=== PATIENT | male | born 2000 | race Caucasian/White ===

== ENCOUNTER 2024-02-06 11:02 | Emergency (ER) | payer OTHER, SELFPAY ==
[2024-02-06 11:07] VITALS: BP 148/88; PULSE 94; RESP 16; TEMP 36.6; O2SAT 100
--- NOTE | 2024-02-06 12:48 | ED.EAR ---
HPI - Ear Problem General Chief complaint: Ear Stated complaint: ear pain Time Seen by Provider: 02/06/24 12:06 History of Present Illness HPI Narrative: Patient is a 24-year-old male who presents to the emergency department this afternoon complaining of right ear pain. Patient states that the pain started approximately 2 days ago and has been progressively getting worse. Patient states that he feels as though there is fluid behind both of his ears although no pain with the left. Denies any fevers or chills at home, any upper respiratory infection and denies any additional symptoms or concerns at this time. Denies any recent swimming. Related Data Allergies Allergy/AdvReac Type Severity Reaction Status Date / Time No Known Allergies Allergy Mild Verified 02/06/24 11:03 Review of Systems Review of Systems: All systems are reviewed and are negative unless stated otherwise in the HPI. Exam Narrative: General: Alert, awake, afebrile, in no acute distress. HEENT: PERRL, no rhinorrhea, no post nasal drip, oropharynx clear, pain with pinna manipulation of the right ear, your with the via along the your kidney and part of the TM. Part of the view is obstructed due to cerumen impaction. Cardiovascular: Regular rate and rhythm, no murmurs, rubs or gallops, no peripheral edema. Respiratory: Clear to auscultation bilaterally, no tachypnea, no wheezing, no rhonchi, no rubs, no respiratory distress. Abdomen: Soft, nontender, nondistended, no rebound, no guarding, no peritoneal signs. Musculoskeletal: No joint swelling or deformity, normal muscle tone. Skin: No rashes or petechia, no signs of infection. Neurological: Alert and oriented to person, place, and time. Follows all commands. No focal deficits, speech is clear and fluent. Course Vital Signs Vital signs: Vital Signs Temperature 97.9 F 02/06/24 11:07 Pulse Rate 94 02/06/24 11:07 Respiratory Rate 16 02/06/24 11:07 Blood Pressure 148/88 H 02/06/24 11:07 Pulse Oximetry 100 02/06/24 11:07 Oxygen Delivery Room Air 02/06/24 11:07 Temperature 97.9 F 02/06/24 11:07 Pulse Rate 94 02/06/24 11:07 Respiratory Rate 16 02/06/24 11:07 Blood Pressure 148/88 H 02/06/24 11:07 Pulse Oximetry 100 02/06/24 11:07 Oxygen Delivery Room Air 02/06/24 11:07 Medical Decision Making MDM Narrative Medical decision making narrative: The patient was evaluated by myself in the emergency department. History is obtained from patient who is an independent historian and physical exam was performed. External medical records were reviewed at this time. Patient was administered 1000 mg of oral amoxicillin at this and was informed that he will be placed on an oral antibiotic at home and provided with a script. Differential diagnosis considerations include otitis externa versus otitis media. Comorbidities impacting this visit include none. I have evaluated and discussed social determinants of health with the patient that could potentially impact subsequent diagnosis and treatment plans. On repeat assessment of the patient, reevaluation revealed that the patient is doing well and is in no acute distress. Patient symptoms have improved since he arrived to our emergency department. Repeat vital signs were all reviewed and noted to be stable. Differential diagnosis and treatment plan were discussed with the patient at bedside. Patient agrees with discussion and after shared medical decision making agrees with discharge. All questions were answered to the patient's satisfaction. Patient will follow up with his PCP in 3-5 days. Patient was provided with strict return precautions and instructed to return to the emergency department if any new or worsening symptoms develop. He was provided with a script for amoxicillin to use as instructed. The patient was discharged in stable condition. Vital Signs Vital Signs: Vital Signs Temperature 97.9 F 02/06/24
[2024-02-06] MEDS: AMOXICILLIN 500 MG CAPSULE 1000 MG PO (13:06)
[2024-02-06 13:09] VITALS: BP 126/77; PULSE 77; RESP 18; TEMP 37; O2SAT 100
== END 2024-02-06 13:06 | disposition home or self-care (01) ==
PROVIDERS: Emergency Provider Emergency Medicine
DX: H66.91 Otitis media, unspecified, right ear (principal)
CPT/HCPCS: 99283; A9270

== ENCOUNTER 2024-09-21 19:29 | Emergency (ER) | payer BC, SELFPAY ==
[2024-09-21 19:30] VITALS: BP 150/82; PULSE 138; RESP 15; TEMP 37.2; O2SAT 98
--- OUTSIDE RECORDS SUMMARY | 2024-09-21 19:33 | XMS_ITS | Patient Health Summary ---
Author Organization [facility] [employer] Address [address] [place] [address] Care Team Providers Care Seasonal Sales Associate Name Role Phone Wilmer Russ [facility] Primary Care Provider [phone] Note from [facility] [employer] [facility] [employer],non-owned Affiliates and Associated Physician Practices is amultiple site organization consisting of ambulatory clinics and hospital sitesin [place], [place]. This disclosure is being madepursuant to the Care Everywhere program and may not contain all information available regarding this patient. Last updated 18.[facility] [employer] Allergies No known active allergies Medications Be aware that medications may not be up to date on this document. Always verify current medications with the patient. No known medications Social History Tobacco Use Types Packs/Day Years Used Date Smoking Tobacco: Never Assessed Sex and Gender Information Value Date Recorded Sex Assigned at Not on file Gender Identity Not on file Sexual Orientation Not on file Procedures * XR ELBOW RIGHT 3VW OR MORE(Performed 05/28/2011) Performed for Radial head fracture Results * XR ELBOW 3+ VW RIGHT (05/28/2011 9:43 AM CDT) Anatomical Region Laterality Modality Upper Extremity Radiographic Little ging 05/28/2011 10:2 1 AM CDT Impressions 05/28/2011 3:00 PM CDT Mildly displaced radial head fracture with healing. D: Flaquito Reilly M.D. Narrative 05/28/2011 3:00 PM CDT Exam: Right elbow 3 views Clinical History: History of fracture Comparison: None available Exam date: 05/28/2011 Findings: There is a mildly displaced fracture of the radial head with minimal healing. Fracture fragments are minimally displaced. A small elbow joint effusion is seen. Procedure Note Darin Velázquez MD - 05/28/2011 Exam: Right elbow 3 views Clinical History: History of fracture Comparison: None available Exam date: 05/28/2011 Findings: There is a mildly displaced fracture of the radial head with minimal healing. Fracture fragments are minimally displaced. A small elbow joint effusion is seen. IMPRESSION Mildly displaced radial head fracture with healing. D: Flaquito Reilly M.D. Meaghan Ca MD DIAGNOSTIC IMAGING O [facility] Care Teams Seasonal Sales Associate Relationship Specialty Start Date End Date [facility] Aj [facility], [place] PCP - General 05/07/11
--- OUTSIDE RECORDS SUMMARY | 2024-09-21 19:33 | XMS_ITS | Clinical Summary ---
Author Organization [facility] [employer] Address [address] [place] [address] Care Team Providers Care Airframe And Powerplant Mechanic Name Role Phone Wilmer Russ [facility] Primary Care Provider [phone] Source Comments [facility] [employer],non-owned Affiliates and Associated Physician Practices is amultiple site organization consisting of ambulatory clinics and hospital sitesin [place], [place], [place] and [place]. This disclosure is being madepursuant to the Care Everywhere program and may not contain all information available regarding this patient. Last updated 18.[employer] Allergies No known active allergies Medications Be [...] on file Sexual Orientation Not on file Plan of Treatment Health Maintenance Due Date Last Done Comments HIV SCREENING 2013 HPV VACCINE (1 - Male 3-dose series) 2013 HEPATITIS C SCREENING 01/06/2016 DTAP/TDAP/TD VACCINES (1 - Tdap) 2017 HEPATITIS B VACCINE (1 of 3 - 19+ 3-dose series) 2017 COVID-19 VACCINE (1 - 2023-2 5 season) 2024 INFLUENZA VACCINE (#1) 2024 DEPRESSION SCREENING 08/05/2024 ZOSTER VACCINE (1 of 2) 01/11/2048 HIB VACCINE Aged Out No longer eligi ble based on patient's age to complete this topic MENINGOCOCCAL (Group B) VACCINE Aged Out No longer eligible based on patient's age to complete this topic MENINGOCOCCAL VACCINE Aged Out No derrell haris eligible based on patient's age to complete this topic PNEUMOCOCCAL VACCINE Aged Out No long er eligible based on patient's age to complete this topic Care Teams Airframe And Powerplant Mechanic Relationship Specialty Start Date End Date [facility], [facility], [place] PCP - General 05/07/11
--- OUTSIDE RECORDS SUMMARY | 2024-09-21 19:33 | XMS_ITS | Continuity of Care Document ---
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 It does not include entries that were removed or entered in error. Problem Status Onset Date Problem Type Date of Resolution Comments Source Acute sinusitis Active 4 Diagnosis [facility] EXAM, OCCUPATIONAL, RESIDENTIAL OR SEPARATION FROM [employer], LONG Active 4 Diagnosis [facility] Worries Active 4 Diagnosis [facility] Anterior edwards splints Active Condition [facility] Atypical chest pain Active Condition 00 [facility] Heartburn Active Condition [facility] Hyperlipidemia Active Condition [facility] Inflammatory dermatosis Active Condition [facility] Pain in throat Active Condition [facility] Tinea pedis Active Condition [facility] Verruca pedis Active Condition [facility] Viral warts Active Condition [facility] Worries Active Condition [facility] dermatitis Active Condition DoD dermatophytosis tinea pedis Active Condition DoD Established Patient Age 12-17 Years School / Camp Physical Inactive Condition DoD upper respiratory infection Inactive Condition DoD scarlet fever Inactive Condition DoD visit for: administrative purpose Inactive Condition DoD pharyngitis streptococcus, group A: beta hemolytic acute Inactive Condition DoD sore throat Active Condition DoD Established Patient Age 5-11 Years School / Camp Physical Active Condition DoD New Patient Age 5-11 School / Camp Physical Inactive Condition DoD Medications Combined list of outpatient medications from Department of Defense and Veterans Affairs facilities.Medications provided include 1) outpatient medications from the last 15 months, and 2) patient-reported medications. 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, Pharmacy : [facility] Oral (given by mouth) Complet ed 10/12/2021 100.0 [facility]78[facility] chlorhexidi ne 0.12% mucous membrane liquid 15 mL, Oral, BID, swish and spit; do not swallow, # 473 mL, 0 total refill(s ), Maintenjem gae, Pharmacy : [facility] Oral (given by mouth) Discont inued 12/13/2021 473.0 0078[facility] Coldpac Sudafed Tablet 30 mg Oral Active 11/24/2024 [id number] 4 [address] [place] [address] Flonase Sensimist 27.5 mcg/inh nasal spray 1 spray(s) , Nostril- Both, Daily, shake well before using, # 15.8 mL, 0 total refill(s ), Maintena nce, Pharmacy : [facility] Nostri l-Both (into the nose) Ordered 15.8 0078[facility] FLONASE-OTC (BRAND) 50 MCG IVETT SPSN [9.9] Take or use exactly as directed .For the nose. Active 11/24/2024 [id number] 4 [address] [place] [address] fluorouraci l 5% topical cream See Instruct ions, apply cream to warts overnigh t as tolerate d, # 40 g, 0 total refill(s ), Acute, Pharmacy : [facility] Discont inued 08/22/2021 40.0 [facility]78[facility] Guaifenesin 600mg, 12 hour Extended Release Tablet Take with plenty of water.Sw allow whole. Active 11/24/2024 [id number] 4 [address] [place] [address] ibuprofen 600 mg oral tablet 1 tab(s), Oral, QID, # 120 tab(s), 1 total refill(s ), Acute, 02/16/22 12:00:00 AM CDT, Pharmacy : [facility] Oral (given by mouth) Complet ed 02/16/2022 120.0 [facility]8O [facility] Mucinex 600 mg oral tablet, extended release 1 tab(s), Oral, every 12 hr, # 20 tab(s), 0 total refill(s ), Acute, 12/03/23 12:00:00 AM CDT, Pharmacy : [facility] Oral (given by mouth) Complet ed 12/03/2023 20.0 [facility]8O [facility] PriLOSEC 20 mg oral delayed release capsule 1 cap(s), Oral, Daily, 30 to 60 minutes before a meal, # 90 cap(s), 0 total refill(s ), Maintena nce, Pharmacy : [facility] Oral (given by mouth) Ordered 90.0 [facility] PriLOSEC 20 mg oral delayed release capsule 1 cap(s), Oral, Daily, 30 to 60 minutes before a meal, # 90 cap(s), 0 total refill(s ), Maintena nce Oral (given by mouth) Discont inued 04/12/2023 90.0 [facility] pseudoePHED rine 30 mg oral tablet 2 tab(s), Oral, every 6 hr, PRN cold symptoms , # 24 tab(s), 0 total refill(s ), Acute, 12/03/23 12:00:00 AM CDT, Pharmacy : [facility] Oral (given by mouth) Complet ed 12/03/2023 24.0 [facility] Allergies, Adverse Reactions, Alerts Combined list of allergies from Department of Defense and Veterans Affairs facilities. It does not include entries that were removed or entered in error. Substance Category Reaction Severity Reaction type Status Date Reported Comments Source No Known Allergies Drug allergy (disorder) active 05/04/2011 [employer] [facility] ([facility]) Immunizations Combined list of available immunizations from the Department of Defense and Veterans Affairs facilities. Immunization Series Date Given Administered By Site Reaction Lot Number CVX Code Drug Therapy Tech Status Comments Source typhoid vaccine, parenteral 2021 TITA Beckford gerardo, right (delt oid) [id number] sanofi pasteur complet ed typhoid vaccine, parentera l 06/12/22 Given 0078C-[facility] COVID-19, mRNA, LNP-S, PF, 100 mcg or 50 mcg dose 2020 GIOVANNY, () Not Given COVID-19, mRNA, LNP-S, PF, 100 mcg or 50 mcg dose DoD COVID-19 vaccine, vector-nr, rS-Ad26, PF, 0.5 mL 2020 GIOVANNY, () Not Given COVID-19 vaccine, vector-nr , rS-Ad26, PF, 0.5 mL DoD SARS-COV-2 (COVID-19) vaccine, mRNA, spike protein, LNP, preservative free, 100 mcg or 50 mcg dose 0 2020 207 [employer] (MOD) complet ed SARS-COV- 2 (COVID-19 ) vaccine, mRNA, spike protein, LNP, preservat zuleyma free, 100 mcg or 50 mcg dose DoD SARS-COV-2 (COVID-19) vaccine, vector non-replicati ng, recombinant spike protein-Ad26, preservative free, 0.5 mL 0 2020 Unknown, Provider TRS 212 [facility] (JSN) complet ed SARS-COV- 2 (COVID-19 ) vaccine, vector non-repli cating, recombina nt spike protein-A d26, preservat zuleyma free, 0.5 mL DoD SARS-COV-2 (COVID-19) vaccine, mRNA, spike protein, LNP, preservative free, 100 mcg or 50 mcg dose 1 2020 [id number] 207 [employer] (MOD) complet ed SARS-COV- 2 (COVID-19 ) vaccine, mRNA, spike protein, LNP, preservat zuleyma free, 100 mcg or 50 mcg dose DoD typhoid Vi capsular polysaccharid e vaccine 1 2019 [id number] 101 Sanofi Pasteur (PMC) complet ed typhoid Vi capsular polysacch aride vaccine DoD influenza, injectable, quadrivalent, contains preservative 1 2019 [id number] 158 Seqirus (SEQ) complet ed influenza , injectabl e, quadrival ent, contains preservat zuleyma DoD Influenza, injectable, quadrivalent, preservative free 5 2018 [id number] 150 Seqirus (SEQ) complet ed Influenza , injectabl e, quadrival ent, preservat zuleyma free DoD influenza, injectable, quadrivalent- pf 2017 [id number] 150 GlaxoSmithKli ne complet ed influenza , injectabl e, quadrival ent-pf 06/13/18 Given Ambulat ory Pharmac y Influenza, injectable, quadrivalent, preservative free 0 2017 [id number] 150 SmithKline (SKB) complet ed Influenza , injectabl e, quadrival ent, preservat zuleyma free DoD hepatitis B adult vaccine 2017 [id number] 43 GlaxoSmithKli ne complet ed hepatitis B adult vaccine 04/21/18 Given Ambulat ory Pharmac y measles/mumps /rubella virus vaccine 2017 [id number] 03 Merck & Company Inc complet ed measles/m umps/rube lla virus vaccine 04/21/18 Given Ambulat ory Pharmac y varicella virus vaccine 2017 [id number] 21 Merck & Company Inc complet ed varicella virus vaccine 04/21/18 Given Ambulat ory Pharmac y measles, mumps and rubella virus vaccine 2 2017 [id number] 03 Merck (MSD) complet ed measles, mumps and rubella virus vaccine DoD varicella virus vaccine 1 2017 [id number] 21 Merck (MSD) complet ed varicella virus vaccine DoD hepatitis B vaccine, adult dosage 1 2017 [id number] 43 SmithKline (SKB) complet ed hepatitis B vaccine, adult dosage DoD hepatitis B adult vaccine 2017 [id number] 43 GlaxoSmithKli ne complet ed hepatitis B adult vaccine 03/12/18 Given Ambulat ory Pharmac y varicella virus vaccine 2017 [id number] 21 Merck & Company Inc complet ed varicella virus vaccine 03/12/18 Given Ambulat ory Pharmac y measles/mumps /rubella virus vaccine 2017 [id number] 03 Merck & Company Inc complet ed measles/m umps/rube lla virus vaccine 03/12/18 Given Ambulat ory Pharmac y measles, mumps and rubella virus vaccine 1 2017 [id number] 03 Merck (MSD) complet ed measles, mumps and rubella virus vaccine DoD varicella virus vaccine 1 2017 [id number] 21 Merck (MSD) complet ed varicella virus vaccine DoD hepatitis B vaccine, adult dosage 1 2017 [id number] 43 SmithKline (SKB) complet ed hepatitis B vaccine, adult dosage DoD adenovirus vaccine, live 2017 [id number] 2 143 Teva Pharmaceut[employer] ls complet ed adenoviru s vaccine, live 03/06/18 Given Ambulat ory Pharmac y tetanus, diphtheria, acellular pertu is 2017 [id number] 115 [employer] complet ed tetanus, diphtheri a, acellular pertussis 03/06/18 Given Ambulat ory Pharmac y meningococcal A,C,Y,W-135 (MCV4P) 2017 [id number] 114 sanofi pasteur complet ed meningoco ccal A,C,Y,W-1 35 (MCV4P) 03/06/18 Given Ambulat ory Pharmac y poliovirus vaccine, inactivated 2017 [id number] 10 sanofi pasteur complet ed polioviru s vaccine, inactivat ed 03/06/18 Given Ambulat ory Pharmac y poliovirus vaccine, inactivated 1 2017 [id number] 10 Sanofi Pasteur (PMC) complet ed polioviru s vaccine, inactivat ed DoD meningococcal polysaccharid e (groups A, C, Y and W-135) diphtheria toxoid conjugate vaccine (MCV4P) 1 2017 [id number] 114 Sanofi Pasteur (PMC) complet ed meningoco ccal polysacch aride (groups A, C, Y and W-135) diphtheri a toxoid conjugate vaccine (MCV4P) DoD tetanus toxoid, reduced diphtheria toxoid, and acellular pertu is vaccine, adsorbed 1 2017 [id number] 115 [employer] (SKB) complet ed tetanus toxoid, reduced diphtheri a toxoid, and acellular pertussis vaccine, adsorbed DoD Adenovirus, type 4 and type 7, live, oral 1 2017 [id number] 143 [facility] ([facility]) complet ed Adenoviru s, type 4 and type 7, live, oral DoD measles virus vaccine 0 2017 05 () Not Given measles virus vaccine DoD hepatitis A vaccine, adult dosage 0 2017 52 () Not Given hepatitis A vaccine, adult dosage DoD influenza, live, intranasal,qu adrivalent 2014 [id number] 149 [employer] comple t ed influenza , live, intranasa l,quadriv alent 05/06/15 Given Ambulat ory Pharmac y meningococcal A,C,Y,W-135 (MCV4P) 2014 [id number] 114 sanofi pasteur complet ed meningoco ccal A,C,Y,W-1 35 (MCV4P) 05/06/15 Given Ambulat ory Pharmac y human papilloma virus vaccine, quadrivalent 0 2014 62 () Not Given human papilloma virus vaccine, quadrival ent DoD meningococcal polysaccharid e (groups A, C, Y and W-135) diphtheria toxoid conjugate vaccine (MCV4P) 0 2014 [id number] 114 Sanofi Pasteur (PMC) complet ed meningoco ccal polysacch aride (groups A, C, Y and W-135) diphtheri a toxoid conjugate vaccine (MCV4P) DoD influenza, live, intranasal, quadrivalent 0 2014 [id number] 149 [employer], KS12. (MED) complet ed influenza , live, intranasa l, quadrival ent DoD tetanus, diphtheria, acellular pertu is 2008 [id number] 115 GlaxoSmithKli wi complet ed tetanus, diphtheri a, acellular pertussis 03/10/09 Given Ambulat ory Pharmac y meningococcal A,C,Y,W-135 (MCV4P) 2008 [id number] 114 sanofi pasteur complet ed meningoco ccal A,C,Y,W-1 35 (MCV4P) 03/10/09 Given Ambulat ory Pharmac y meningococcal polysaccharid e (groups A, C, Y and W-135) diphtheria toxoid conjugate vaccine (MCV4P) 1 2008 [id number] 114 Sanofi Pasteur (PMC) complet ed meningoco ccal polysacch aride (groups A, C, Y and W-135) diphtheri a toxoid conjugate vaccine (MCV4P) DoD tetanus toxoid, reduced diphtheria toxoid, and acellular pertu is vaccine, adsorbed 1 2008 [id number] 115 [employer] (SKB) complet ed tetanus toxoid, reduced diphtheri a toxoid, and acellular pertussis vaccine, adsorbed DoD influenza virus vaccine,split 2007 [id number] 15 sanofi pasteur complet ed influenza virus vaccine,s plit 07/20/08 Given Ambulat ory Pharmac y influenza virus vaccine, split virus (incl. purified surface antigen)-reti red CODE 1 2007 [id number] 15 Sanofi Pasteur ([facility]) complet ed influenza virus vaccine, split virus (incl. purified surface antigen)- retired CODE DoD varicella virus vaccine 2007 [id number] 21 Merck & Company Inc complet ed varicella virus vaccine 01/06/08 Given Ambulat ory Pharmac y Hep A, pediatric, unspecified formul 2007 [id number] 31 GlaxoSmithKli ne complet ed Hep A, pediatric , unspecifi ed formul 01/06/08 Given Ambulat ory Pharmac y varicella virus vaccine 2 2007 [id number] 21 Merck (MSD) complet ed varicella virus vaccine DoD hepatitis A vaccine, pediatric dosage, unspecified formulation 2 2007 [id number] 31 [employer] (SKB) complet ed hepatitis A vaccine, pediatric dosage, unspecifi ed formulati on DoD Hep A, pediatric, unspecified formul 2006 [id number] 31 GlaxoSmithKli ne complet ed Hep A, pediatric , unspecifi ed formul 03/14/07 Given Ambulat ory Pharmac y hepatitis A vaccine, pediatric dosage, unspecified formulation 1 2006 [id number] 31 Smith[employer] (SKB) complet ed hepatitis A vaccine, pediatric dosage, unspecifi ed formulati on DoD influenza virus vaccine,split 2002 [id number] 15 sanofi pasteur complet ed influenza virus vaccine,s plit 07/21/03 Given Ambulat ory Pharmac y influenza virus vaccine, split virus (incl. purified surface antigen)-reti red CODE 1 2002 [id number] 15 Sanofi Pasteur ([facility]) complet ed influenza virus vaccine, split virus (incl. purified surface antigen)- retired CODE DoD DTaP 2001 [id number] 20 sanofi pasteur complet ed DTaP 02/26/02 Given Ambulat ory Pharmac y poliovirus vaccine, inactivated 2001 [id number] 10 sanofi pasteur complet ed polioviru s vaccine, inactivat ed 02/26/02 Given Ambulat ory Pharmac y measles/mumps /rubella virus vaccine 2001 [id number] 03 Merck & Company Inc complet ed measles/m umps/rube lla virus vaccine 02/26/02 Given Ambulat ory Pharmac y measles, mumps and rubella virus vaccine 1 2001 [id number] 03 Merck (MSD) complet ed measles, mumps and rubella virus vaccine DoD poliovirus vaccine, inactivated 1 2001 [id number] 10 Sanofi Pasteur ([facility]) complet ed polioviru s vaccine, inactivat ed DoD diphtheria, tetanus toxoids and acellular pertu is vaccine 5 2001 [id number] 20 Sanofi Pasteur ([facility]) complet ed diphtheri a, tetanus toxoids and acellular pertussis vaccine DoD tuberculin purified protein derivative 2000 [id number] 96 [facility] complet ed tuberculi n purified protein derivativ e 10/16/00 Given Ambulat ory Pharmac y haemophilus b conjugate (HbOC) vaccine 1998 [id number] 47 [facility] complet ed haemophil us b conjugate (HbOC) vaccine 04/12/99 Given Ambulat ory Pharmac y DTaP 1998 [id number] 20 [facility] complet ed DTaP 04/12/99 Given Ambulat ory Pharmac y poliovirus vaccine, live, oral 1998 [id number] 02 [facility] complet ed polioviru s vaccine, live, oral 04/12/99 Given Ambulat ory Pharmac y trivalent poliovirus vaccine, live, oral 1 1998 [id number] 02 [employer] ([facility]) comple t ed trivalent polioviru s vaccine, live, oral DoD diphtheria, tetanus toxoids and acellular pertu is vaccine 4 1998 [id number] 20 [employer] ([facility]) comple t ed diphtheri a, tetanus toxoids and acellular pertussis vaccine DoD Haemophilus influenzae type b vaccine, HbOC conjugate 4 1998 [id number] 47 [facility] ([facility]) comple t ed Haemophil us influenza e type b vaccine, HbOC conjugate DoD varicella virus vaccine 1998 [id number] 21 Merck & Company Inc complet ed varicella virus vaccine 01/11/99 Given Ambulat ory Pharmac y measles/mumps /rubella virus vaccine 1998 1789H 03 Merck & Company Inc complet ed measles/m umps/rube lla virus vaccine 01/11/99 Given Ambulat ory Pharmac y measles, mumps and rubella virus vaccine 1 1998 1789H 03 Merck (MSD) complet ed measles, mumps and rubella virus vaccine DoD varicella virus vaccine 1 1998 [id number] 21 Merck (MSD) complet ed varicella virus vaccine DoD DTaP 1997 454 760 20 [employer] [facility] complet ed DTaP 98 Given Ambulat ory Pharmac y hepatitis B pediatric/ado lescent 1997 0433H 08 Merck & Company Inc complet ed hepatitis B pediatric /adolesce nt 98 Given Ambulat ory Pharmac y haemophilus b conjugate (HbOC) vaccine 1997 [id number] 47 [employer] [facility] complet ed haemophil us b conjugate (HbOC) vaccine 98 Given Ambulat ory Pharmac y hepatitis B vaccine, pediatric or pediatric/ado lescent dosage 3 1997 0433H 08 Merck (MSD) complet ed hepatitis B vaccine, pediatric or pediatric /adolesce nt dosage DoD diphtheria, tetanus toxoids and acellular pertu is vaccine 3 1997 454 760 20 [employer] ([facility]) comple t ed diphtheri a, tetanus toxoids and acellular pertussis vaccine DoD Haemophilus influenzae type b vaccine, HbOC conjugate 3 1997 [id number] 47 [employer] ([facility]) comple t ed Haemophil us influenza e type b vaccine, HbOC conjugate DoD haemophilus b conjugate (HbOC) vaccine 1997 [id number] 47 [employer] [facility] complet ed haemophil us b conjugate (HbOC) vaccine 98 Given Ambulat ory Pharmac y DTaP 1997 456 816 20 [employer] [facility] complet ed DTaP 98 Given Ambulat ory Pharmac y poliovirus vaccine, inactivated 1997 [id number] 1 10 Sanofi Pasteur Incorporated complet ed polioviru s vaccine, inactivat ed 98 Given Ambulat ory Pharmac y poliovirus vaccine, inactivated 2 1997 [id number] 1 10 Merieux (IM) complet ed polioviru s vaccine, inactivat ed DoD diphtheria, tetanus toxoids and acellular pertu is vaccine 2 1997 456 816 20 [employer] (LED) comple t ed diphtheri a, tetanus toxoids and acellular pertussis vaccine DoD Haemophilus influenzae type b vaccine, HbOC conjugate 2 1997 [id number] 47 [employer] (LED) comple t ed Haemophil us influenza e type b vaccine, HbOC conjugate DoD poliovirus vaccine, inactivated 1997 M1352 10 Sanofi Pasteur Incorporated complet ed polioviru s vaccine, inactivat ed 98 Given Ambulat ory Pharmac y hepatitis B pediatric/ado lescent 1997 1224E 08 Merck & Company Inc complet ed hepatitis B pediatric /adolesce nt 98 Given Ambulat ory Pharmac y haemophilus b conjugate (HbOC) vaccine 1997 [id number] 47 [facility] complet ed haemophil us b conjugate (HbOC) vaccine 98 Given Ambulat ory Pharmac y DTaP 1997 453 844 [facility] D[facility] 98 Given Ambulat ory Pharmac y hepatitis B vaccine, pediatric or pediatric/ado lescent dosage 2 1997 1224E 08 Merck (MSD) complet ed hepatitis B vaccine, pediatric or pediatric /adolesce nt dosage DoD poliovirus vaccine, inactivated 1 1997 M1352 10 Merieux (IM) complet ed polioviru s vaccine, inactivat ed DoD diphtheria, tetanus toxoids and acellular pertu is vaccine 1 1997 453 844 20 [employer] (LED) comple t ed diphtheri a, tetanus toxoids and acellular pertussis vaccine DoD Haemophilus influenzae type b vaccine, HbOC conjugate 1 1997 [id number] 47 [employer] (LED) comple t ed Haemophil us influenza e type b vaccine, HbOC conjugate DoD hepatitis B pediatric/ado lescent 1997 08 complet ed hepatitis B pediatric /adolesce nt 98 Given Ambulat ory Pharmac y hepatitis B vaccine, pediatric or pediatric/ado lescent dosage 1 1997 08 () complet ed hepatitis B vaccine, pediatric or pediatric /adolesce nt dosage DoD Results Combined list of recent chemistry, hematology and other laboratory results from Department of Defense and Veterans Affairs, ranging from 15 months to all on record, depending upon the facility. Order Name Results Value Reference Range Date Interpretation Specimen Comments Source Infectiou s Disease Chlamydia NAAT.EPI NEGATIVE 07/17 Result Comment: INTERPRETAT ION(S): 0078A[facility] Infectiou s Disease GC NAAT.EPI NEGATIVE 07/17 Result Comment: INTERPRETAT ION(S): NAAT = Nucleic acid amplificati on test A positive result indicates that DNA of Chlamydia trachomatis (CT) and/or Neisseria gonorrhoeae (GC) is present in the specimen tested and strongly supports a diagnosis of chlamydial/ gonorrheal infection. A negative result indicates that DNA for CT and/or GC was not detected in the specimen. An indetermina te result indicates that a specimen contains inhibitory substances that prevent nucleic acid target extraction and/or amplificati on and detection. See the Limitation s section in the Lab Guide for known interfering substances. The performance of this assay has not been evaluated in adolescents less than 14 years of age. This report is intended for use in clinical monitoring or management of patients; it is not intended for use in medico-lega l application s. The assay has not been evaluated with patients who are currently being treated with antimicrobi al agents active against CT or GC as well as patients with a history of hysterectom y. In general, this assay should not be used to assess therapeutic success or failure since nucleic acids from these organisms may persist for 3 weeks or more following antimicrobi al therapy. The predictive value of an assay depends on the prevalence of the disease in any particular population. In settings with a high prevalence of sexually transmitted disease, positive assay results have a high likelihood of being true positives. In settings with a low prevalence of sexually transmitted disease, or in any setting in which a patient's clinical signs and symptoms or risk factors are inconsisten t with gonococcal or chlamydial urogenital infection, positive results should be carefully assessed and the patient retested by other methods (e.g., culture for Neisseria gonorrhoeae ), if appropriate . The prevalence for all specimens tested in this laboratory is 5% for CT and 0.5% for GC. At this prevalence, the Achie[employer] r estimates the overall sensitivity and specificity for CT to be 94.1% and 99.6% respectivel y. For GC the sensitivity and specificity rates are 97.1% and 99.8%. The Positive Predictive Value and the Negative Predictive Value calculated by the [employer] using the above clinical trial data are 92% and 99.7% for CT and 82% and 100% for GC. Results should be interpreted in conjunction with other laboratory and clinical information . A negative result does not exclude the possibility of infection. Improper specimen collection, concurrent antibiotic therapy, presence of inhibitors, or low numbers of organisms in the specimen may cause false-negat zuleyma results. If clinical indications strongly suggest gonococcal or chlamydial infection, additional specimens should be collected for testing. Testing of urine specimens with this method is not intended to replace a cervical exam and endocervica l sampling for diagnosis of urogenital infection. A first catch urine specimen is acceptable but may detect up to 10% fewer infections when compared with vaginal and endocervica l swab specimens. Methodology : NAAT Notifiable result/cond ition for Local/State PH department. Notify your local public health immediately for proper notificatio n. Performed by: Epidemiolog y Laboratory Service [facility] Bldg. [address] [place] [phone] [facility] Urinalysi s UA Color Yellow ( 2 3:07 PM) 07/17 N [facility] Urinalysi s UA Clarity CLEAR 07/17 [facility] Urinalysi s UA pH 6.0 5.0 - 8.0 07/17 N [facility] Urinalysi s UA Spec [place] >=1.030 g/mL 1.003 - 1.035 07/17 [facility]78[facility] Urinalysi s UA Glucose Negative mg/dL 07/17 N Interpretiv e Data: The following values are considered critical ONLY IF: [Glucose equals - 100, 250, 500, >=1000 AND Ketones equals - Trace, 15, 40, >=80] The following values are not considered critical IF: [Glucose equals - Negative AND Ketones equals - Negative, Trace, 15, 40, >=80] OR [Glucose equals - 100, 250, 500, >=1000 AND Ketones equals - Negative] [facility] Urinalysi s UA Ketones Negative mg/dL 07/17 N Interpretiv e Data: The following values are considered critical ONLY IF: [Glucose equals - 100, 250, 500, >=1000 AND Ketones equals - Trace, 15, 40, >=80] The following values are not considered critical IF: [Glucose equals - Negative AND Ketones equals - Negative, Trace, 15, 40, >=80] OR [Glucose equals - 100, 250, 500, >=1000 AND Ketones equals - Negative] [facility] Urinalysi s UA Blood Negative ( 2 3:07 PM) 07/17 N [facility] Urinalysi s UA Protein Negative mg/dL 07/17 N [facility] Urinalysi s UA Bili Negative ( 2 3:07 PM) 07/17 N [facility] Urinalysi s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 Extensive Color Vision Testing Extensive Color Vision Testing 44759 018 [facility] Determination Of Refractive State Determination Of Refractive State [phone] DOREEN JACKSON [facility] Ophthalmological New Patient Start Comprehensive Care Ophthalmological New Patient Start Comprehensive Care [phone] [facility] DORE[facility] ALIYAH [facility] Screening Test Of Visual Acuity, Quantitative, Bilateral Screening Test Of Visual Acuity, Quantitative, Bilateral 25876 018 [facility] NIKOLE [facility] ECG 12-Lead With Interpretation And Report ECG 12-Lead With Interpretation And Report 16285 018 [facility] Function Screening Visual Function Screening 76581 018 [facility] Extensive Color Vision Testing Extensive Color Vision Testing 70923 018 [facility] NIKOLE [facility] Threshold Audiogram (Pure Tone) Threshold Audiogram (Pure Tone) 47881 018 BRITTNEE FOY [facility] Physician Supervised Injection Intramuscular Antibiotic Physician Supervised Injection Intramuscular Antibiotic 24028 018 FREDDY TANNER [facility] Threshold Audiogram (Pure Tone) Threshold Audiogram (Pure Tone) 92655 018 BRITTNEE FOY [facility] Non-Physician Phone Call To Patient/Provider Brief (5-10min) Non-Physician Phone Call To Patient/Provider Brief (5-10min) 30487 014 RUTH FISHER [facility] Meningococcal (A, C, Y, W-135) Oligosacch Diphtheria Toxoid Conj Vacc 009 CARMEN SIM [facility] Tdap Vaccine Tdap Vaccine 71773 009 CARMEN SIM [facility] Antigen Detection Immunoa ay Dir Opt Obs Streptococcus Grp A Antigen Detection Immunoassay Dir Opt [place] A [address] 009 GILL PAGAN [facility] Rapid Antigen Detection Streptococcus Group A Beta Hemolytic Rapid Antigen Detection Streptococcus Group A Beta Hemolytic 54199 008 MANPREET GARCIA [facility] Hep A Vac Ped/Adol Dosage (Intramusc Use) 2 Dose Schedule Hep A Vac Ped/Adol Dosage (Intramusc Use) 2 Dose Schedule 95361 007 CAROL BLOOD [facility] Preventive Medicine Administration Of Health Risk Questionnaire Patient-Focused Preventive Medicine Administration Of Health Risk Questionnaire Patient-Focused 01834 HARIS SIMPSON [facility] Psychometric Emotional / Behavioral A e ment Psychometric Emotional / Behavioral Assessment 31733 HARIS SIMPSON [facility] Threshold Audiogram (Pure Tone) Threshold Audiogram (Pure Tone) 75613 HARIS SIMPSON [facility] Screening Test Of Visual Acuity, Quantitative, Bilateral Screening Test Of Visual Acuity, Quantitative, Bilateral 50901 HARIS SIMPSON [facility] Threshold Audiogram (Pure Tone) Automated Threshold Audiogram (Pure Tone) Automated 0208T [place] [facility] Waiver services; not otherwise specified (NOS) VOMONICA RIDDLE Reinier [facility] Electrocardiogram Electrocardiogram 32267 HARIS SIMPSON [facility] Physician Supervised Specimen Handling / Transfer: Office To Lab Physician Supervised Specimen Handling / Transfer: Office To Lab 28476 DAMIEN WOODS 2019-ncov coronavirus, sars-cov-09/2018-ncov (covid-19), any technique, multiple types or subtypes (includes all targets), non-cdc DAMIEN WOODS Social History Combined list of available smoking, tobacco, and other social history from Department of Defense and Veterans Affairs facilities. Social History Type Response Date Comment Sourdinora e Male 08/25/2018 Ambulatory Pha rmacy Tobacco Exposure to Secondha nd Smoke: No. Never-cigarette user Cigarette use:. Never-other tobacco user (not cigarettes) Other Tobacco use:. Ambulatory Pharmacy Sexual Orientation Ambula tory Pharmacy Gender identity Ambulator y Pharmacy This section is an empty social history section. [facility] Assessment and Plan Combined list of future care activities from Department of Defense and Veterans Affairs facilities (e.g., assessment and plan notes, appointments, orders, and referrals). Additional future care activities may be listed in the Plan of Care section. Result Assessment and Plan Date Source Assessment and Plan Extracted from:Title : CSSP- Sore Throat Author: JASMYNE HARRELL, EMT Date: 11/25/23 S: [age] Years o ld M morena p atient with a history of sore throat for O NE d ays; presents to the clinic for throat swab per: YES T hroat erythema NO E xudate present NO E xcess salivation NO D ifficulty Opening Mouth NO S evere and/or one sided Tonsillar swelling NO M arked Swelling and Tenderness of Cervical Lymph Nodes NO R neal YES F oul smelling breath EXCLUSION CRITERIA NODoes the patient have any blisters or sores in their mouth? NODoes the patient have any chest pain? NODoes the patient have SOB, wheezing, or having difficulty breathing? NODoes nilson patient have d ifficulty swallowing, talking, a muffled voice, drooling, or feel like their throat is pushed to one side? NOHas the patient had any abdominal or joint pain recently? NOIs the patient's jaw difficult to move or feel locked? NOIs the patient more than 12 weeks ? YESHas the patient had the sore throat without improvement for more than 48 hours? NOHas nilson patient had the sore throat for more than 5 days or a fever for more than 10 days? NODoes the patient have a rash? NOHas the patient had any v omiting? NOIn the past 3 0 days has nilson patient been treated for strep throat that had a positive throat culture? NODoes the patient have a history of HIV, chemotherapy, or currently taking a steroid? NOHas the patient been exposed to a sexually transmitted infection or had uprocted sex in the last 6 weeks? NOVital signs are NOT within normal parameters. O: Vital signs recorded in VS Module. SSP Scoring: NO: 0Is cough absent? NO: 0IIs there a history of fever >100.4? NO: 0IIs there tonsillar exudate? NO: 0IAre there swollen tender anterior nodes? NO: 0IIs the patient's age less than 14 years? NO: 0Is the patients age greater than 44 years? SCORE: 0 JAMES 0-1: Viral pharyngitis, further testing not indicated A: Sore Throat Patient reviewed by provider. Patient recommended to take medications as directed and keep up fluid intake and rest as much as possible. P: P triny notified. Outcome of Patient: X R eleased to Self Care N/A R eleased with Attendant/Caregiver N/A R eturned to Provider N/A T ransferred to Emergency Department N/A A dmitted to: Extracted from:Title: [facility] Author: SHAKEEL VIDALES PA-C Date: 11/13/23 1. 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 -2807 reviewed (see ASIMS for details). -Currently using medications for treatment of GERD. -Member has requested a copy of his medical records and has already m et w celio a VSO for disability claim assistance. -Audiogram: H-1 -No dental or eye concerns. -Separation physical exam (see 280 in ASIMS for details) completed t chavez. -Chart review conducted and found no disqualifying concerns for MEB or waiver at this time. -Member is WWQ and medically OK to separate from service. -Advised to f[facility]u with [facility] or [facility] for medical concerns. AEROMEDICAL DISPOSITION - Member is from [employer] and is not longer flying. Extracted from:Title: [facility] [place]: Fly PHA Author: ROSIO CLOUD NP Date: 09/05/23 1. 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 - ASIMS reviewed, member nimco, [id number] up input - H1 hearing profile, no STS - Vision screening 20/20 bilaterally uncorrected - Prev Health: Discussed age appropriate recommendations including regular cardiovascular exercise and health diet. D iscussed lifestyle, safe sex practices. D iscussed alcohol and nicotine use. D iscussed FH. D iscussed MH. - Aero: no DNIF - Reviewed SUKHWINDER; WWQ - Duty Restrictions: None - Mobility Restrictions: None - Fitness Restrictions: None - Retention: No RILO or MEB needed Rosio Mccain Aeromedical Nurse Practitioner [employer], [place] 2. 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 A typical chest pain Individual with h/o atypical chest p ain and a normal cardiac e valuation. He is scheduled to accomplish his fitness test before 05 Jul 2023. I recommend that he restart his fitness program and gradually increase the t aditya and intensity of his physical activity. N o DNIF or FR//. He is to f/u in [facility] Clinic prn. 2. H lio Individual reports a h/o recurrent heartburn which he has treated in the past with TUMS. He states the TUMS helps to temporarily relieve his symptoms. He has never been evaluated for GERD. I will prescribe a trial of Prilosec 20mg QD (#90, 0RF). No DNIF or FR/MR/. Jose shelley is to f/u for re-evaluation in 2-3 months or prn if his symptoms are not controlled with Prilosec. 3. Jem nxmarisol Individual reports a h/o anxiety and difficulty sleeping. He has never been previously evaluated for these symptoms. He has agreed to make a BHOP appointment f or further evaluation and treatment of anxiety and sleep issues. N o DNIF or FR/MR/. He is to f/u prn. Lamonte Ramsey MD, MPH Col (RET), [facility] [[email or web address]], , CFS [employer] [place] [address] Extracted from:Title: Office Clinic Note Author: RANDOLPH BERNARD IDMT Date: 04/12/23 1. C hest discomfort 23 y/o AD M with chest pain during sit-ups component of PT test yesterday. No chest pain in clinic today BP slightly elevated, HR 91. EKG obtained which was normal sinus rhythm, no abnormalities noted. No SOB, difficulty breathing, wheezing, palpitations. PE unremarkable. Denies difficulty breathing, SOB, chest pain/discomfort, palpitations, or chest tightness in clinic. He has been seen by cardiology since early 2022 and a majority of his test results have been normal however he states h as not been notified of his Holter monitor result. He was placed on R TFS due to other cardiology results being unremarkable-cardiology suggested pain m ay be stress?induced. D iscussed case with Capt Cloud, preceptor, w bandar caicedo o n medical validation o f illness/injury and patient was scheduled follow up with PCM for Apr 27 @ 1430. Patient q uestions sought and answered. Report to ER over weekend if chest pain, radiating jaw pain, difficulty breathing, palpitations, or chest tightness occur. AMD: No DNIF Extracted from:Title: RTF Author: HARIS SIMPSON MD Date: 03/12/23 1. A dministrative reason for encounter Medications reconciled. Symptoms have adequately resolved. 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 Member to return to flying status Form 2992 completed for pt. CAROL damon SCLP-No AMD DNIF- No Waiver -No Profile N o PRP-no WWQ- y es Haris Simpson, Ashkan, DO [employer] , [place], 55 OM[employer] Extracted from:Title: Atypical chest pain and hyperlipidemia Author: LAMONTE RAMSEY MD Date: 09/24/22 1. A typical chest pain Individual with recurrent episodes of left-sided chest pain and palpitations x2 years. The cardiopulmonary examination is normal and the EKG and screening lab work are n ormal. I will refer him to [facility] ardiology for further evaluation and treatment. He is instructed to f/u at the nearest ER if the chest pain and palpitations increase in intensity and duration. He is DNIF pending Cardiology evaluation. I will provide him a FR/DR/MR x90 days. He is to f/u after the Cardiology evaluation is accomplished or prn. 2. H yperlipidemia Individual with an elevated lipid profile and a r atio of 5.56. His B AR is 32.25.? I recommend that he start a low cholesterol/fat diet and a w eight reduction program. He is to repeat a lipid panel, FBS and HgbA1C i n 6 months. Continue DNIF and FR/MR/. He is to f/u after r epeat lab work i s accomplished or prn. Extracted from:Title: Annual Fly PHA Author: LAMONTE RAMSEY MD Date: 07/13/22 1. 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 N o DNIF or FR/MR/. 2. 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 Visual function screen WNL (uncorrected). Audiogram: H-1 Profile, no STS. No waivers. No profiles. Immunizations: UTD Referred to laboratory for HIV test. Ground testing: Needs to accomplish. Web [email or web address] reviewed for critical/priority items w/ i ndividual. Medication list was reconciled. N ot taking unapproved aeromedical medications. Discussed diet, exercise, lifestyle modifications and recommended health screening for age. No anxiety, depression, P TSD or SI/HI. No Mental Health concerns after MHA review. No ALC o r MEB. Cleared for f light duties, D D Form 8422 signed. AMD: No DNIF. No FR/MR/. WWQ: Yes. Next PHA due in 12 months, f/u prn. 3. E levated blood pressure reading without diagnosis of hypertension Individual is concerned about his initial Bp of 153/96. A repeat Bp is 130/84 with a rate of 96 bpm. He is also c/o atypical chest pain, recurrent tachycardia and palpitations. His cardiopulmonary examination is normal and t he EKG shows a NSR with rate 94 bpm w /o ectopy or a cute ischemic changes. I will request screening lab work (CBC, CMP, lipid panel, TSH, UA). No DNIF or FR/MR/. He is to f/u in 1-2 weeks for re-evaluation and to?review lab results. He is instructed to f/u with the closest ED if he develops progressive chest pain, SOB or sustained palpitations. Ordered: CBC w/ Diff Comprehensive Metabolic Panel Lipid Panel Thyroid Stimulating Hormone with reflex Free T4 Orders: *Differential Automated *Glomerular Filtration Rate, Estimated Extracted from:Title: Anterior edwards splint, bilateral Author: LAMONTE RAMSEY MD Date: 12/13/21 1. A nterior edwards splints Individual with bilateral a nterior edwards splints (R>L). X-ray of the right tibia shows no evidence of an acute or healing fracture. I will p rescribe Motrin prn pain. I will refer him to Physical Therapy for evaluation, treatment and HEP prescription for stretching exercises to improve LE flexibility. He is to start an interval running p kenia in 1-2 weeks on a padded track. He should strive to do interval training every 3 days. He is to stretch out before and after running, a pply warm compresses to legs after running and take Motrin prn pain. 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 He has an upcoming fitness test and is requesting a profile. I will provide him a FR for no walk/run x60 days, no MR/. He is to f/u f or re-evaluation o f progress as needed. Extracted from:Title: wart f/u Author: TRICE MIRANDA MD Date: 08/22/21 1. V iral warts F/u warts, improving but remain present. No adverse treatment effects from prior c andida and cryotherapy. Previous discussion regarding the viral/infective nature of warts and that no single treatment is universally curative. D iscussed various treatment options for warts (to include but not limited to): r epeat c ryotherapy, pulse dye laser (PDL), topical salicylic acid, occlusive tape, repeat c andida antigen injection, topical Efudex, none of which are consistently known to resolve warts 100% of the time. Counseled that warts do not have to be treated as the majority will resolve within 3 years. Counseled on the prolonged and resistant nature of warts and their treatment and encouraged persistence. -- Treated with 2 cycles of liquid nitrogen -- Patient declines repeat sol antigen injection at this time. -- OTC Gentian mariela application reviewed for antimicrobial effects for occluded anatomical site between/under toes. Reaffirmed skin dying side effect. Use daily. -- Consider initiating HPV vaccine series per allergy/immunization if has not yet done so. -- f/u in 1-2mo if wart(s) still present Any conditions addressed in this encounter which: Limit WWQ - No Require DR/MR/FR - No Meets an MSD condition or requires DAWG referral or IRILO - No Trice Easton. MD Sherri, FAAD Ashkan, , [facility] [[email or web address]] Dermatology, [facility], [facility] [employer] Extracted from:Title: warts - derm initial Author: TRICE MIRANDA MD Date: 07/21/21 1. V iral warts C ounseled on the viral/infective nature of warts and that no single treatment is universally curative. D iscussed various treatment options for warts (to include but not limited to): cryotherapy, topical salicylic acid, occlusive tape, sol antigen injection, topical Efudex, none of which are consistently known to resolve warts 100% of the time. Counseled that warts do not have to be treated as the majority will resolve within 3 years. Counseled on the prolonged and resistant nature of warts and their treatment and encouraged persistence. -- Treated with 2 cycles of liquid nitrogen -- Sol antigen 0.2ml intralesional injection performed to right foot warts. p rior to procedure the risks of local irritation/erythema/pain/infect ion were described and verbal consent obtained, pt tolerated procedure well -- Gentian mariela application reviewed for antimicrobial effects for occluded anatomical site between toes. Reaffirmed skin dying side effect. - Fluorouracil 5% topical cream qhs after 5 -7 days following cryotherapy and candidal injections performed. May cause irritation/inflammatory response, discontinue for severe pain and/or blistering. Use caution on occluded site. -- Consider initiating HPV vaccine series per allergy/immunization -- f/u in 1-2mo if wart(s) still present Ordered: fluorouracil topical, See Instructions, apply cream to warts overnight as tolerated, # 40 g, 0 total refill(s), Acute, apply cream to warts overnight as tolerated, Pharmacy: [facility] [Not filled] gentian mariela topical, 1 appl(s), Topical, Solution-Topical, Once, First Dose: 07/21/2021 14:00:00 BRICK KILN WORKER, Stop Date: 07/21/2021 14:00:00 BRICK KILN WORKER, 07/21/2021 13:42:00 BRICK KILN WORKER Destruct Rajendra Lesn;Up To 14 Lsns 66114 Inject Skin Lesions </= 7 46982 Office Visit [facility] [address] Patient may require ground trial for topical 5FU application for irritation. [place] slip given to patient to drop at flight medicine and inquire. If DNIF or waiver needed, plan to discontinue topical medication and not use. Patient verified understanding of care plan and had no further questions Trice Miranda MD, FAAD Ashkan, , [facility] [[email or web address]] Dermatology, [facility], [employer] Addendum by CATALINA HARRY MD on July 24, 2021 16:45:30 BRICK KILN WORKER Flight Surgeon Review. Discussed with SM. He has not started taking medications and will not at this time. States that he may want to try them next year and will come to flight med to discuss prior to doing so. AMD: No DNIF Extracted from:Title: Fly PHA Author: JANET BANDA, Date: 06/13/21 1. 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 -No current waiver. -Vision: standards met -Hearing: H1 on current audiogram. -Ground testing: Current. -Medications reconciled. Not taking an unapproved aeromedical medications. -Immunizations UTD -ASIMS: Green after MHA/PHA review. -No Mental health concerns after screening assessment. No SI/HI, PTSD, anxiety or depression. -Profile: No current profile. WWQ without ALC or pending MEB. -Cleared for Fitness Test and flight duties. 2992 Updated. -Member is NOT tasked to deploy. Cleared for deployment or PCS if indicated. -Discussed diet, exercise, lifestyle modifications and recommended health screening for age. -Next PHA due in 12 months. -NO DNIF waiver or MEB indicated at this time. Keep flight medicine aware of health changes. Ordered: Administration,Pt-Foc [facility] Asses Inst 32818 Emot/Behavl Assess w/Score and Doc; per tool 16898 Periodic Comp Preventive Med 18 to 39 years Est 61867 Pure Tone Audiometry Air Only 23772 Screening Test Visual Acuity Quantitative Bilat 16762 2. 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 V erruca pedis D ue to the extensive anatomic involvement, will refer to dermatology fro staged treatment consideration. No AMD changes. Ordered: Administration,Pt-Foc Hlth Rsk Asses Inst 50549 Emot/Behavl Assess w/Score and Doc; per tool 07453 Periodic Comp Preventive Med 18 to 39 years Est 17332 Pure Tone Audiometry Air Only 67007 Screening Test Visual Acuity Quantitative Bilat 17626 Extracted from:Title: Ambulatory Patient Education Author: JANET BANDA DO Date: 06/13/21 Patient Education Materials Follows:Health Preventive Care 18 3 9 Years, Male Preventive care refers to lifestyle choices and visits with your health care provider that can promote health and wellness. What does preventive care include? A yearly physical exam. This is also called an annual well check. Dental exams once or twice a year. Routine eye exams. Ask your health care provider how often you should have your eyes checked. Personal lifestyle choices, including: Daily care of your teeth and gums. Regular physical activity. Eating a healthy diet. Avoiding tobacco and drug use. Limiting alcohol use. Practicing safe sex. What happens during an annual well check? The services and screenings done by your health care provider during your annual well check will depend on your age, overall health, lifestyle risk factors, and family history of disease. Counseling Your health care provider may ask you questions about your: Alcohol use. Tobacco use. Drug use. Emotional well-being. Home and relationship well-being. Sexual activity. Eating habits. Work and work environment. Screening You may have the following tests or measurements: Height, weight, and BMI. Blood pressure. Lipid and cholesterol levels. These may be checked every 5 years starting at age 20. Diabetes screening. This is done by checking your blood sugar (glucose) after you have not eaten for a while (fasting). Skin check. Hepatitis C blood test. Hepatitis B blood test. Sexually transmitted disease (STD) testing. Discuss your test results, treatment options, and if necessary, the need for more tests with your health care provider. Vaccines Your health care provider may recommend certain vaccines, such as: Influenza vaccine. This is recommended every year. Tetanus, diphtheria, and acellular pertussis (Tdap, Td) vaccine. You may need a Td booster every 10 years. Varicella vaccine. You may need this if you have not been vaccinated. HPV vaccine. If you are 26 or younger, you may need three doses over 6 months. Measles, mumps, and rubella (MMR) vaccine. You may need at least one dose of MMR. Y ou may also need a second dose. Pneumococcal 13-valent conjugate (PCV13) vaccine. You may need this if you have certain conditions and have not been vaccinated. Pneumococcal polysaccharide (PPSV23) vaccine. You may need one or two doses if you smoke cigarettes or if you have certain conditions. Meningococcal vaccine. One dose is recommended if you are age 19 2 1 years and a first-year college student living in a residence bear, or if you have one of several medical conditions. You may also need additional booster doses. Hepatitis A vaccine. You may need this if you have certain conditions or if you travel or work in places where you may be exposed to hepatitis A. Hepatitis B vaccine. You may need this if you have certain conditions or if you travel or work in places where you may be exposed to hepatitis B. Haemophilus influenzae type b (Hib) vaccine. You may need this if you have certain risk factors. Talk to your health care provider about which screenings and vaccines you need and how often you need them. This information is not intended to replace advice given to you by your health care provider. Make sure you discuss any questions you have with your health care provider. Document Released: 09/17/2002 Document Revised: 03/04/2018 Document Reviewed: 05/22/2016 [employer] Patient Education 2019 [employer] 09/22/[address] [place] [address] Functional Status Combined list of recent functional and cognitive assessments recorded at Department of Defense and Veterans Affairs (VA).VA Functional [place] Measurement (FIM) Scale: 1 = Total Assistance (Subject = 0% +), 2 = Maximal Assistance (Subject = 25% +), 3 = Moderate Assistance (Subject = 50% +), 4 = Minimal Assistance (Subject = 75% +), 5 = Supervision, 6 = Modified [place] (Device), 7 = Complete [place] (Timely, Safely). Assessment Date/Time Source Assessment Type Assessment Skill Assessment Score Assessment Details No data available for this section
--- OUTSIDE RECORDS SUMMARY | 2024-09-21 19:33 | XMS_ITS | Referral Summary ---
Author Organization [facility] Address [address] [place] [address] Care Team Providers Care Bi Architect Name Role Phone Petrona [facility] Primary Care Provider [phone] Source Comments [facility],non-owned Affiliates and Associated Physician Practices is amultiple site organization consisting of ambulatory clinics and hospital sitesin [place], [place], [place] and [place]. This disclosure is being madepursuant to the Care Everywhere program and may not contain all information available regarding this patient. Last updated 18.[facility] Allergies No known active allergies Medications Be [...] Orientation Not on file Plan of Treatment Not on file Care Teams Bi Architect Relationship Specialty Start Date End Date [facility] [place] PCP - General 05/07/11
--- NOTE | 2024-09-21 19:36 | ECG_ITS ---
Test Date: 2024-09-21 19:38:55 Measurements Intervals [place] Rate: 135 P: 34 SC: 138 QRS: 69 QRSD: 92 T: 33 QT: 283 QTc: 425 Interpretive Statements SINUS TACHYCARDIA BASELINE ARTIFACT- I, III, AVR, AVL, V1-V3 ABNORMAL ECG No previous ECG available for comparison Electronically Signed On 09-22-2024 06:22:42 DIRECTOR TRADING by Marlon Rodas D.O.
[2024-09-21 20:11] LABS: Strep Group A RT-PCR NOT DETECTED (Negative)
[2024-09-21 20:23] LABS: Influenza A QL RT-PCR Negative (Negative); Influenza B QL RT-PCR Negative (Negative); RSV RNA, RT-PCR Negative (Negative); SARS-CoV-2 RNA PCR Negative (Negative)
--- NOTE | 2024-09-22 00:07 | ED_ITS ---
HPI - General Adult General Chief complaint: Dental/Oral Stated complaint: sore throat Time Seen by Provider: 09/22/24 00:01 Source: patient Mode of arrival: ambulatory Limitations: no limitations History of Present Illness HPI narrative: This is a 24-year-old male who presents to the ED for chief complaint of sore throat onset x3 days. Patient reports the pain is gradually increased over the past couple of days. States that he has had mild congestion and cough but primary issues the throat. Denies voice change, trismus or drooling. Reports subjective fevers but no body aches. Related Data Allergies Allergy/AdvReac Type Severity Reaction Status Date / Time No Known Allergies Allergy Mild Verified 09/21/24 19:37 Review of Systems 2 Review of Systems: All systems as dictated in HPI Exam 2 Narrative: GENERAL: Well-appearing, well-nourished, and in no acute distress. HEAD: Normocephalic, atraumatic. EYES: PERRLA and EOMI. ENT: Mildly erythematous tonsils bilaterally. Left greater than right tonsillar swelling. There is isolated exudate or tonsillar stone to the left tonsil. Uvula midline. No muffled voice. No trismus or drooling. Nares clear, no rhinorrhea or epistaxis. Mucous membranes moist. Oropharynx without tonsillar hypertrophy exudate or other lesions. NECK: Supple. No adenopathy or masses. CHEST: No respiratory distress. Clear to auscultation. No wheezes rales or rhonchi HEART: Regular rate and rhythm. No murmur heard. Normal peripheral pulses. ABDOMEN: Soft, nontender, nondistended, normal active bowel sounds. MSK: Normal range of motion. No edema. SKIN: Warm, dry, no rash. NEURO: Alert and oriented x4. No focal deficits. PSYCH: Normal mood and affect. Course Vital Signs Vital signs: Vital Signs Temperature 99 F 09/21/24 19:30 Pulse Rate 138 H 09/21/24 19:30 Respiratory Rate 15 09/21/24 19:30 Blood Pressure 150/82 H 09/21/24 19:30 Pulse Oximetry 98 09/21/24 19:30 Oxygen Delivery Room Air 09/21/24 19:30 Temperature 99 F 09/21/24 19:30 Pulse Rate 111 H 09/22/24 00:26 Respiratory Rate 15 09/22/24 00:26 Blood Pressure 152/88 H 09/22/24 00:26 Pulse Oximetry 100 09/22/24 00:26 Oxygen Delivery Room Air 09/21/24 19:30 Medical Decision Making MDM Narrative Medical decision making narrative: This is a 24-year-old male who presents to the ED for chief complaint of sore throat. Vitals do show initial tachycardia but otherwise are normal. Exam shows erythematous, mildly swollen tonsils. No signs of deep space infection on exam. Lab work shows mildly elevated white count of 11.1. CMP unremarkable. Boyle screen is negative. Presentation consistent with pharyngitis, however unclear as to whether this is viral or bacterial. Questionable exudate on his tonsillar exam so will prescribe Augmentin for possible bacterial pharyngitis. He was given IV fluids, Toradol and dexamethasone with good relief of symptoms. Patient will be discharged in stable condition. Supportive measures discussed and return precautions given. Patient is understanding and agreeable with plan for discharge with PCP follow-up. Vital Signs Vital Signs: Vital Signs Temperature 99 F 09/21/24 19:30 Pulse Rate 138 H 09/21/24 19:30 Respiratory Rate 15 09/21/24 19:30 Blood Pressure 150/82 H 09/21/24 19:30 Pulse Oximetry 98 09/21/24 19:30 Oxygen Delivery Room Air 09/21/24 19:30 Temperature 99 F 09/21/24 19:30 Pulse Rate 111 H 09/22/24 00:26 Respiratory Rate 15 09/22/24 00:26 Blood Pressure 152/88 H 09/22/24 00:26 Pulse Oximetry 100 09/22/24 00:26 Oxygen Delivery Room Air 09/21/24 19:30 Lab Data 09/22/24 00:16 09/22/24 00:16 Labs: Lab Results 09/21/24 09/22/24 Range/Units 19:41 00:16 WBC 11.1 H (4.5-10.0) K/mm3 RBC 4.70 (4.6-6.20) M/mm3 Hgb 14.0 (14.0-18.0) g/dL Hct 41.6 L (42.0-52.0) % MCV 88.5 (80-100) fl MCH 29.8 (26-34) pg MCHC 33.7 (32-36) g/dl RDW 12.7 (11.5-14.5) % Plt Count 384 H (150-375) k/mm3 MPV 10.5 H (7.4-10.4) fl Immature Gran % (Auto) 0.4 (0-0.5) % Neut % (Auto) 67.0 (45.5-73.1) % Lymph % (Auto) 16.7 L (18.3-44.2) % Boyle % (Auto) 14.1 H (2.6-8.5) % Eos % (Auto) 1.2 (0-4.4) % Baso % (Auto) 0.6 (0.2-1.2) % Lymph # (Auto) 1.85 (0.9-3.2) K/mm3 Boyle # (Auto) 1.6 H (0.1-0.6) K/mm3 Eos # (Auto) 0.1 (0-0.3) K/mm3 Baso # (Auto) 0.1 (0.0-0.1) K/mm3 Abs Immat Gran (auto) 0.04 H (0.00-0.031) K/mm3 Absolute Neuts (auto) 7.4 H (1.3-6.7) K/mm3 Absolute Nucleated RBC 0.000 (0.0-0.012) K/mm3 Nucleated RBC % 0.0 (0.0-0.2) % Sodium 138 (137-145) mmol/L Potassium 3.7 (3.4-5.0) mmol/L Chloride 102 (98-107) mmol/L Carbon Dioxide 24 (22-30) mmol/L Anion Gap 12 (4-12) mmol/L BUN 12 (9-20) mg/dL Creatinine 0.81 (0.7-1.3) mg/dL Estim Creat Clear Calc 168 ml/min Estimated GFR > 60 (59 - ) Glucose 104 (65-110) mg/dL Calcium 9.5 (8.4-10.2) mg/dL Total Bilirubin 0.5 (0.2-1.3) mg/dL AST 34 (17-59) U/L ALT 57 H (6-50) U/L Alkaline Phosphatase 101 (38-126) U/L Total Protein 8.0 (6.3-8.2) g/dL Albumin 4.6 (3.5-5.1) g/dL Influenza A (RT-PCR) Negative (Negative) Influenza B (RT-PCR) Negative (Negative) RSV (RT-PCR) Negative (Negative) SARS-CoV-2 RNA (RT-PCR) Negative (Negative) Group A Strep (PCR) Not detected (Negative) Discharge Plan Discharge Clinical Impression: Pharyngitis Patient Disposition: Home, Self-Care Condition: Stable Instructions: Antibiotic Form Additional Instructions: Your exam today is reassuring overall. This is most likely either viral or bacterial pharyngitis. Please take antibiotics as prescribed follow-up with PCP. Take Tylenol and ibuprofen regularly for pain, swelling and fevers. If you have any new or worsening symptoms please return to the ER for further evaluation. Patient Language: [place] Prescriptions: New amoxicillin-pot clavulanate 875-125 mg tablet 1 tablet PO Q12H Qty: 14 0RF No Action amoxicillin 875 mg tablet 875 mg PO Q12H 7 Days Qty: 14 0RF Follow-up/Referrals: [place], [Primary Care Provider] - Stand Alone Forms: Work/School Release IP Time of Disposition: 01:20
--- OUTSIDE RECORDS SUMMARY | 2024-09-22 00:09 | XMS_ITS | Clinical Summary ---
Author Organization [facility] [employer] Address [address] [place] [address] Care Team Providers Care Security Representative Name Role Phone Wilmer Russ [facility] Primary Care Provider [phone] Source Comments [facility] [employer],non-owned Affiliates and Associated Physician Practices is amultiple site organization consisting of ambulatory clinics and hospital sitesin [place], [place], [place] and [place]. This disclosure is being madepursuant to the Care Everywhere program and may not contain all information available regarding this patient. Last updated 18.[email or web address] [employer] Allergies No known active allergies Medications Be [...] age to complete this topic Care Teams Security Representative Relationship Specialty Start Date End Date [facility], [facility], [place] PCP - General 05/07/11
--- OUTSIDE RECORDS SUMMARY | 2024-09-22 00:09 | XMS_ITS | Patient Health Summary ---
Author Organization [facility] [employer] Address [address] [place] [address] Care Team Providers Care Paleology Professor Name Role Phone Wilmer Russ [facility] Primary Care Provider [phone] Note from [facility] [employer] [facility] [employer],non-owned Affiliates and Associated Physician Practices is amultiple site organization consisting of ambulatory clinics and hospital sitesin [place], [place], [place] and [place]. This disclosure is being madepursuant to the Care Everywhere program and may not contain all information available regarding this patient. Last updated 18.[facility] [employer] Allergies No known active allergies Medications Be [...] M.D. Meaghan Ca MD DIAGNOSTIC IMAGING [facility] Care Teams Paleology Professor Relationship Specialty Start Date End Date [facility] [place] PCP - General 05/07/11
--- OUTSIDE RECORDS SUMMARY | 2024-09-22 00:09 | XMS_ITS | Continuity of Care Document ---
Author Name [facility] Organization [facility] Care Team Providers Care Networks Computer Consultant Name Role Phone [facility] Unavailable Unavailable Problems Combined list of problems from Department of Defense and Veterans Affairs facilities. It does not include entries that were removed or entered in error. Problem Status Onset Date Problem Type Date of Resolution Comments Source Acute sinusitis Active 4 Diagnosis [facility] EXAM, OCCUPATIONAL, CUSTODIAL OR SEPARATION FROM [employer], LONG Active 4 Diagnosis [facility] Worries Active 4 Diagnosis [facility] dermatitis Active Condition DoD dermatophytosis tinea pedis Active Condition DoD Established Patient Age 12-17 Years School / Camp Physical Inactive Condition DoD upper respiratory infection Inactive Condition [facility] scarlet fever Inactive Condition [facility] visit for: administrative purpose Inactive Condition [facility] pharyngitis streptococcus, group A: beta hemolytic acute Inactive Condition [facility] sore throat Active Condition DoD Established Patient Age 5-11 Years School / Camp Physical Active Condition DoD New Patient Age 5-11 School / Camp Physical Inactive Condition DoD Anterior edwards splints Active Condition [facility] [...] Worries Active Condition [facility] Medications Combined list of outpatient medications from [...] total refill(s ), 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, 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, Pharmacy : [facility] Oral (given by mouth) Complet ed 10/12/2021 100.0 0078[facility] chlorhexidi ne 0.12% mucous membrane liquid 15 mL, Oral, BID, swish and spit; do not swallow, # 473 mL, 0 total refill(s ), Maintenjem kye, Pharmacy : [facility] Oral (given by mouth) Discont inued 12/13/2021 473.0 0078[facility] Coldpac Sudafed Tablet 30 mg Oral Active 11/24/2024 [id number] 4 [address] [place] [address] Flonase Sensimist 27.5 mcg/inh nasal spray 1 spray(s) , Nostril- Both, Daily, shake well before using, # 15.8 mL, 0 total refill(s ), Maintena nce, Pharmacy : [facility] Nostri l-Both (into the nose) Ordered 15.8 0078[facility] FLONASE-OTC (BRAND) 50 MCG IVETT SPSN [9.9] Take or use exactly as directed .For the nose. Active 11/24/2024 [id number] 4 [address] [place] [address] fluorouraci l 5% topical cream See Instruct ions, apply cream to warts overnigh t as tolerate d, # 40 g, 0 total refill(s ), Acute, Pharmacy : [facility] Discont inued 08/22/2021 40.0 0078[facility] Guaifenesin 600mg, 12 hour Extended Release Tablet Take with plenty of water.Sw allow whole. Active 11/24/2024 [id number] 4 [address] [place] [address] ibuprofen 600 mg oral tablet 1 tab(s), Oral, QID, # 120 tab(s), 1 total refill(s ), Acute, 02/16/22 12:00:00 AM CDT, Pharmacy : [facility] Oral (given by mouth) Complet ed 02/16/2022 120.0 [facility] Mucinex 600 mg oral tablet, extended release 1 tab(s), Oral, every 12 hr, # 20 tab(s), 0 total refill(s ), Acute, 12/03/23 12:00:00 AM CDT, Pharmacy : [facility] Oral (given by mouth) Complet ed 12/03/2023 20.0 [facility] PriLOSEC 20 mg oral delayed release capsule 1 cap(s), Oral, Daily, 30 to 60 minutes before a meal, # 90 cap(s), 0 total refill(s ), Maintena nce, Pharmacy : [facility] Oral (given by mouth) Ordered 90.0 [facility] PriLOSEC 20 mg oral delayed release capsule 1 cap(s), Oral, Daily, 30 to 60 minutes before a meal, # 90 cap(s), 0 total refill(s ), Maintena nce Oral (given by mouth) Discont inued 04/12/2023 90.0 [facility] pseudoePHED rine 30 mg oral tablet 2 tab(s), Oral, every 6 hr, PRN cold symptoms , # 24 tab(s), 0 total refill(s ), Acute, 12/03/23 12:00:00 AM CDT, Pharmacy : [facility] Oral (given by mouth) Complet ed 12/03/2023 24.0 [facility] Allergies, Adverse Reactions, Alerts Combined list of allergies from Department of Defense and Veterans Affairs facilities. It does not include entries that were removed or entered in error. Substance Category Reaction Severity Reaction type Status Date Reported Comments Source No Known Allergies Drug allergy (disorder) active 05/04/2011 [employer] [facility] ([facility]) Immunizations Combined list of available immunizations from the Department of Defense and Veterans Affairs facilities. Immunization Series Date Given Administered By Site Reaction Lot Number CVX Code Drug Robotype Operator Status Comments Source typhoid vaccine, parenteral 2021 TITA Beckford gerardo, right (delt oid) [id number] sanofi pasteur complet ed typhoid vaccine, parentera l 06/12/22 Given [facility]78[facility] COVID-19, mRNA, LNP-S, PF, 100 mcg or [...] or 50 mcg dose 0 2020 207 [employer]. (MOD) complet ed SARS-COV- 2 (COVID-19 ) vaccine, mRNA, spike protein, LNP, preservat zuleyma free, 100 mcg or 50 mcg dose DoD SARS-COV-2 (COVID-19) vaccine, vector non-replicati ng, recombinant spike protein-Ad26, preservative free, 0.5 mL 0 2020 Unknown, Provider TRS 212 [facility] (JSN) complet ed SARS-COV- 2 (COVID-19 ) vaccine, vector non-repli cating, recombina nt spike protein-A d26, preservat zuleyma free, 0.5 mL DoD SARS-COV-2 (COVID-19) vaccine, mRNA, spike protein, LNP, preservative free, 100 mcg or 50 mcg dose 1 2020 [id number] 207 [employer] (MOD) complet ed SARS-COV- 2 (COVID-19 ) vaccine, mRNA, spike protein, LNP, preservat zuleyma free, 100 mcg or 50 mcg dose DoD typhoid Vi capsular polysaccharid e vaccine 1 2019 [id number] Sanofi Pasteur (PMC) complet ed typhoid Vi capsular polysacch aride vaccine DoD influenza, injectable, quadrivalent, contains preservative 1 2019 [id number] 158 Seqirus (SEQ) complet ed influenza , injectabl e, quadrival ent, contains preservat zuleyma DoD Influenza, injectable, quadrivalent, preservative free 5 2018 [id number] 150 Seqirus (SEQ) complet ed Influenza [...] Pharmac y measles/mumps /rubella virus vaccine 2017 [id number] 03 Merck & Company Inc complet ed measles/m umps/rube lla virus vaccine 04/21/18 Given Ambulat ory Pharmac y varicella virus vaccine 2017 [id number] 21 Merck & Company Inc complet ed varicella virus vaccine 04/21/18 Given Ambulat ory Pharmac y measles, mumps and rubella virus vaccine 2 2017 [id number] 03 Merck (MSD) complet ed measles, mumps and rubella virus vaccine DoD varicella virus vaccine 1 2017 [id number] 21 Merck (MSD) complet ed varicella virus vaccine DoD hepatitis B vaccine, adult dosage 1 2017 [id number] 43 SmithKline (SKB) complet ed hepatitis B vaccine, adult dosage DoD hepatitis B adult vaccine 2017 [id number] 43 GlaxoSmithKli ne complet ed hepatitis B adult vaccine 03/12/18 Given Ambulat ory Pharmac y varicella virus vaccine 2017 [id number] 21 Merck & Company Inc complet ed varicella virus vaccine 03/12/18 Given Ambulat ory Pharmac y measles/mumps /rubella virus vaccine 2017 [id number] 03 Merck & Company Inc complet ed measles/m umps/rube lla virus vaccine 03/12/18 Given Ambulat ory Pharmac y measles, mumps and rubella virus vaccine 1 2017 [id number] 03 Merck (MSD) complet ed measles, mumps and rubella virus vaccine DoD varicella virus vaccine 1 2017 [id number] 21 Merck (MSD) complet ed varicella virus vaccine DoD hepatitis B vaccine, adult dosage 1 2017 [id number] 43 SmithKline (SKB) complet ed hepatitis B vaccine, adult dosage DoD adenovirus vaccine, live 2017 [id number] 143 Teva Pharmaceutica ls complet ed adenoviru s vaccine, live 03/06/18 Given Ambulat ory Pharmac y tetanus, diphtheria, acellular pertu is 2017 [id number] 115 Intell[employer]icsK[employer] wi complet ed tetanus, diphtheri a, acellular pertussis 03/06/18 Given Ambulat ory Pharmac y meningococcal A,C,Y,W-135 (MCV4P) 2017 [id number] 114 sanofi pasteur complet ed meningoco ccal A,C,Y,W-1 35 (MCV4P) 03/06/18 Given Ambulat ory Pharmac y poliovirus vaccine, inactivated 2017 [id number] 10 sanofi pasteur complet ed polioviru s vaccine, inactivat ed 03/06/18 Given Ambulat ory Pharmac y poliovirus vaccine, inactivated 1 2017 [id number] 10 Sanofi Pasteur (PMC) complet ed polioviru s vaccine, inactivat ed DoD meningococcal polysaccharid e (groups A, C, Y and W-135) diphtheria toxoid conjugate vaccine (MCV4P) 1 2017 [id number] 114 Sanofi Pasteur (PMC) complet ed meningoco ccal polysacch aride (groups A, C, Y and W-135) diphtheri a toxoid conjugate vaccine (MCV4P) DoD tetanus toxoid, reduced diphtheria toxoid, and acellular pertu is vaccine, adsorbed 1 2017 [id number] 115 Inkv[employer]Santa Claus (SKB) complet ed tetanus toxoid, reduced diphtheri a toxoid, and acellular pertussis vaccine, adsorbed DoD Adenovirus, type 4 and type 7, live, oral 1 2017 [id number] 143 [facility] ([facility]) complet ed Adenoviru s, type 4 and type 7, live, oral DoD measles virus vaccine 0 2017 05 () Not Given measles virus vaccine DoD hepatitis A vaccine, adult dosage 0 2017 52 () Not Given hepatitis A vaccine, adult dosage DoD influenza, live, intranasal,qu adrivalent 2014 [id number] PolarTech Inc comple t ed influenza , live, intranasa l,quadriv alent 05/06/15 Given Ambulat ory Pharmac y meningococcal A,C,Y,W-135 (MCV4P) 2014 [id number] 114 sanofi pasteur complet ed meningoco ccal A,C,Y,W-1 35 (MCV4P) 05/06/15 Given Ambulat ory Pharmac y human papilloma virus vaccine, quadrivalent 0 2014 62 () Not Given human papilloma virus vaccine, quadrival ent DoD meningococcal polysaccharid e (groups A, C, Y and W-135) diphtheria toxoid conjugate vaccine (MCV4P) 0 2014 [id number] 114 Sanofi Pasteur (PMC) complet ed meningoco ccal polysacch aride (groups A, C, Y and W-135) diphtheri a toxoid conjugate vaccine (MCV4P) DoD influenza, live, intranasal, quadrivalent 0 2014 [id number] 149 Selerity, [employer]. (MED) complet ed influenza , live, intranasa l, quadrival ent DoD tetanus, diphtheria, acellular pertu is 2008 [id number] 115 GlaxoSmithKli wi complet ed tetanus, diphtheri a, acellular pertussis 03/10/09 Given Ambulat ory Pharmac y meningococcal A,C,Y,W-135 (MCV4P) 2008 [id number] 114 sanofi pasteur complet ed meningoco ccal A,C,Y,W-1 35 (MCV4P) 03/10/09 Given Ambulat ory Pharmac y meningococcal polysaccharid e (groups A, C, Y and W-135) diphtheria toxoid conjugate vaccine (MCV4P) 1 2008 [id number] 114 Sanofi Pasteur (PMC) complet ed meningoco ccal polysacch aride (groups A, C, Y and W-135) diphtheri a toxoid conjugate vaccine (MCV4P) DoD tetanus toxoid, reduced diphtheria toxoid, and acellular pertu is vaccine, adsorbed 1 2008 [id number] 115 SmithSanta Claus (SKB) complet ed tetanus toxoid, reduced diphtheri a toxoid, and acellular pertussis vaccine, adsorbed DoD influenza virus vaccine,split 2007 [id number] 15 sanofi pasteur complet ed influenza virus vaccine,s plit 07/20/08 Given Ambulat ory Pharmac y influenza virus vaccine, split virus (incl. purified surface antigen)-reti red CODE 1 2007 [id number] 15 Sanofi Pasteur ([facility]) complet ed influenza virus vaccine, split virus [...] unspecified formulation 2 2007 [id number] 31 SmithSanta Claus (SKB) complet ed hepatitis A vaccine, pediatric [...] formulati on DoD influenza virus vaccine,split 2002 [id number] 15 sanofi pasteur complet ed influenza virus vaccine,s plit 07/21/03 Given Ambulat ory Pharmac y influenza virus vaccine, split virus (incl. purified surface antigen)-reti red CODE 1 2002 [id number] 15 Sanofi Pasteur ([facility]) complet ed influenza virus vaccine, split virus (incl. purified surface antigen)- retired CODE DoD DTaP 2001 [id number] 20 sanofi pasteur complet ed DTaP 02/26/02 [...] inactivated 1 2001 [id number] 10 Sanofi Pasteur ([facility]) complet ed polioviru s vaccine, inactivat ed DoD diphtheria, tetanus toxoids and acellular pertu is vaccine 5 2001 [id number] 20 Sanofi Pasteur ([facility]) complet ed diphtheri a, tetanus toxoids and acellular pertussis vaccine DoD tuberculin purified protein derivative 2000 [id number] [address] [facility] complet ed tuberculi n purified protein derivativ e 10/16/00 Given Ambulat ory Pharmac y haemophilus b conjugate (HbOC) vaccine 1998 [id number] 47 [facility] complet ed haemophil us b conjugate (HbOC) vaccine 04/12/99 Given Ambulat ory Pharmac y DTaP 1998 [id number] 20 [facility] complet ed DTaP 04/12/99 Given Ambulat ory Pharmac y poliovirus vaccine, live, oral 1998 [id number] 02 [facility] complet ed polioviru s vaccine, live, oral 04/12/99 Given Ambulat ory Pharmac y trivalent poliovirus vaccine, live, oral 1 1998 [id number] 02 Bhupinders[employer]y ([facility]) comple t ed trivalent polioviru s vaccine, live, oral DoD diphtheria, tetanus toxoids and acellular pertu is vaccine 4 1998 [id number] 20 [employer] ([facility]) comple t ed diphtheri a, tetanus toxoids and acellular pertussis vaccine DoD Haemophilus influenzae type b vaccine, HbOC conjugate 4 1998 [id number] 47 [facility] ([facility]) comple t ed Haemophil us influenza e [...] vaccine DoD DTaP 1997 [id number] 20 [employer] [facility] complet ed DTaP 98 Given Ambulat ory Pharmac y hepatitis B pediatric/ado lescent 1997 [id number] 08 Merck & Company Inc complet ed hepatitis B pediatric /adolesce nt 98 Given Ambulat ory Pharmac y haemophilus b conjugate (HbOC) vaccine 1997 [id number] 47 [employer] [facility] complet ed haemophil us b conjugate (HbOC) vaccine 98 Given Ambulat ory Pharmac y hepatitis B vaccine, pediatric or pediatric/ado lescent dosage 3 1997 [id number] 08 Merck (MSD) complet ed hepatitis B vaccine, pediatric or pediatric /adolesce nt dosage DoD diphtheria, tetanus toxoids and acellular pertu is vaccine 3 1997 [id number] 20 Bhupinders[employer]y ([facility]) comple t ed diphtheri a, tetanus toxoids and acellular pertussis vaccine DoD Haemophilus influenzae type b vaccine, HbOC conjugate 3 1997 [id number] 47 [employer] ([facility]) comple t ed Haemophil us influenza e type b vaccine, HbOC conjugate DoD haemophilus b conjugate (HbOC) vaccine 1997 [id number] 47 [employer] [facility] complet ed haemophil us b conjugate (HbOC) vaccine 98 Given Ambulat ory Pharmac y DTaP 1997 [id number] 816 20 [employer] [facility] complet ed DTaP 98 Given Ambulat ory [...] type b vaccine, HbOC conjugate 2 1997 [id number] 47 Bhupindererle (LED) comple t ed Haemophil [...] b conjugate (HbOC) vaccine 1997 [id number] 47 [facility] complet ed haemophil us b conjugate (HbOC) [...] NEGATIVE 07/17 Result Comment: INTERPRETAT ION(S): [facility] Infectiou s Disease GC NAAT.EPI NEGATIVE 07/17 [...] 0.5% for GC. At this prevalence, the [employer] r estimates the overall sensitivity and specificity for CT to be 94.1% and 99.6% respectivel y. For GC the sensitivity and specificity rates are 97.1% and 99.8%. The Positive Predictive Value and the Negative Predictive Value calculated by the [employer] r using the above clinical trial data [...] n. Performed by: Epidemiolog y Laboratory [facility] Bldg. [id number] [place] [id number] [facility] Urinalysi s UA Color Yellow ( 2 3:07 PM) 07/17 N [facility] Urinalysi s UA Clarity CLEAR 07/17 [facility] Urinalysi s UA pH 6.0 5.0 - 8.0 07/17 N [facility] Urinalysi s UA Spec [place] >=1.030 g/mL 1.003 - 1.035 07/17 0078[facility] Urinalysi s UA Glucose Negative mg/dL 07/17 [...] >=1000 AND Ketones equals - Negative] [facility] Urinalysi s UA Ketones Negative mg/dL 07/17 [...] >=1000 AND Ketones equals - Negative] [facility] Urinalysi s UA Blood Negative ( 2 3:07 PM) 07/17 N [facility] Urinalysi s UA Protein Negative mg/dL 07/17 N [facility] Urinalysi s UA Bili Negative ( 2 3:07 PM) 07/17 N [facility] Urinalysi s UA Urobilinog en 0.2 E.U./dL 07/17 N [facility] Urinalysi s UA Nitrite Negative ( 2 3:07 PM) 07/17 N [facility] Urinalysi s UA Leuk Esterase Negative ( 2 3:07 PM) 07/17 N [facility] Urinalysi s UA Micro Ind? Not Indicate d ( 2 3:07 PM) 07/17 N [facility] Chemistry TSH 2.54 uIU/mL 0.47 - 4.68 07/13 N [facility] Hematolog y Neutrophil % Auto 45.5 % 36.0 - 66.0 07/13 N [facility]78[facility] Hematolog y Lymphocyte % Auto 40.7 % [...] y Neutro Absolute 3.12 x10^9/L 1.30 - 7.15953 07/13 N [facility] Hematolog y Lymph Absolute 2.79 x10^9/L 0.60 - 3.30044 07/13 N [facility] Hematolog y [place] Absolute 0.73 x10^9/L 0.20 - 1.46779 07/13 N [facility] Hematolog y Eos Absolute 0.13 x10^9/L 0.00 - 0.20516 07/13 N [facility] Hematolog y Baso Absolute 0.07 x10^9/L 0.00 - 0.57592 07/13 N [facility] Hematolog y Imm. Granulocyt e Absolute 0.02 x10^3/mc L 0.00 - 0.57679 07/13 N [facility] Chemistry [...] [iU]/L 20.0 - 125.0 07/13 N [facility] ALT 57 [iU]/L 5 - 57 07/13 N [facility] Chemistry AST 38 [iU]/L 3 - 43 07/13 N [facility] Chemistry Bilirubin Total 0.4 mg/dL 0.2 - 1.3 07/13 N [facility] Chemistry BUN 16 mg/dL 9 - 20 07/13 N [facility] Chemistry Calcium 9.6 mg/dL 8.9 - 10.5 07/13 N [facility] Chemistry Chloride 102 mmol/L 98 - 107 07/13 N [facility] Chemistry CO2 29 mmol/L 22 - 30 07/13 N [facility] Chemistry Glucose Lvl 104 mg/dL 70 - 100 07/13 H [facility]78[facility] Chemistry Potassium Lvl 3.9 mmol/L 3.5 - 5.1 07/13 N [facility] Chemistry Sodium 143 mmol/L 137 - 145 07/13 N [facility] Chemistry Protein Total 8.2 g/dL 6.4 - 8.3 07/13 N [facility] Chemistry LDL/HDL 4 07/13 [facility] Chemistry HDL/Chol <5.0 mg/dL 07/13 N [facility] Chemistry Cholestero l Total 250 mg/dL 0 - 200 07/13 H [facility]78[facility] Chemistry Chol/HDL 5.56 ratio 0.00 - 4.20 07/13 H [facility] Chemistry HDL Cholestero l 45 mg/dL 07/13 N [facility] Chemistry LDL 173 mg/dL 07/13 H [facility] Chemistry Triglyceri taylor 158 mg/dL 0 - 150 07/13 H [facility] Hematolog y WBC 6.9 x10^9/L 3.6 - 10.1109 07/13 N [facility]78[facility] Hematolog y RBC 5.06 x10^12/L 4.13 - 6.580761 07/13 N [facility] Hematolog y Hemoglobin 15.2 g/dL 12.5 - 17.8 07/13 N [facility] Hematolog y Hematocrit 44.8 % 38.2 - 53.1 07/13 N [facility] Hematolog y MCV 88 fL 80 - 99 07/13 N [facility] Hematolog y MCH 30.0 pg 26.0 - 34.0 07/13 N [facility] Hematolog y MCHC 33.9 g/dL 30.8 - 35.6 07/13 N [facility] Hematolog y RDW 12.6 % 11.5 - 14.5 07/13 N [facility] Hematolog y Platelets 477 x10^9/L 140 - [id number] 07/13 H [facility]78[facility] Hematolog y MPV 9.90 fL 6.90 - 10.60 07/13 N [facility] Chemistry eGFR CKD EPI 106 mL/min/1 .73_m2 [...] G4 Severe decrease <15 G5 Kidney failure 007[facility] Infectiou s Disease HIV-1/O/2. EPI NON-REAC TIVE [...] Prevention' s HIV diagnostic algorithm. Refer to [facility] Lab Guide for additional information : [email or web address] x Testing performed by Shannan tanner. Performed by: Epidemiolog y Laboratory Service [facility] [id number] [place] [address], [place] [address] [facility]iou s Disease SARS-CoV-2 PCR Negative [...] spots or characteriz e disease trends. [facility] Molecular Infectiou s Disease Reason for Test? Screenin g (02/25/21 9:00 AM) 02/25 N [facility] Vital Signs Combined list of inpatient and outpatient Vital Signs from Department of Defense and Veterans Affairs, ranging from 12 months to all on record, depending upon the facility. Vital Sign Value Date Comments Source Systolic Blood Pressure 123 mm[Hg] 12/13/19 22 14:27:[address] [place] [address] Diastolic Blood Pressure 73 mm[Hg] 022 14:27:[address] [place] [address] Mean Arterial Pressure, Calc 90 mm[Hg] 12/12/2021 14:27:[address] [place] [address] Peripheral Pulse Rate 125 bpm 12/12/2021 14:27:[address] [place] [address] Respiratory Rate 16 br/min 12/12/2021 14:27:[address] [place] [address] Temperature Oral 36.9 Shaila 12/12/2021 14:27:[address] [place] [address] BP Site Right arm 12/12/2021 14:27:[address] [place] [address] Blood Pressure Manual Automatic 12/12/2021 14:27:[address] Systolic Blood Pressure 140 mm[Hg] 07/12/20 15:55:[address] Diastolic Blood Pressure 86 mm[Hg] 15:55:[address] Mean Arterial Pressure, Calc 104 mm[Hg] 07/12/2022 15:55:[address] [place] [address] Medical Clinic BP Site Right arm 07/12/2022 15:55:[address] [place] [address] [facility] Clinic Blood Pressure Manual Manual 07/12/2022 15:55:[address] [place] [address] Medical Clinic Systolic Blood Pressure 130 mm[Hg] 07/12/20 15:55:[address] Diastolic Blood Pressure 84 mm[Hg] 15:55:[address] [place] [address] Medical Clinic Mean Arterial Pressure, Calc 99 mm[Hg] 07/12/2022 15:55:[address] [place] [address] Medical Clinic Peripheral Pulse Rate 96 bpm 07/12/2022 15:55:[address] [place] [address] Medical Clinic BP Site Left arm 07/12/2022 15:55:[address] Blood Pressure Manual Manual 07/12/2022 15:55:[address] Systolic Blood Pressure 153 mm[Hg] 07/12/20 14:01:[address] [place] [address] Medical Clinic Diastolic Blood Pressure 96 mm[Hg] 14:01:[address] [place] [address] Medical Clinic Mean Arterial Pressure, Calc 115 mm[Hg] 07/12/2022 14:01:[address] [place] [address] Medical Clinic Peripheral Pulse Rate 133 bpm 07/12/2022 14:01:[address] [place] [address] Medical Clinic Respiratory Rate 16 br/min 07/12/2022 14:01:[address] Systolic Blood Pressure 131 mm[Hg] 09/05/19 24 15:15:[address] [place] [address] Medical Clinic Diastolic Blood Pressure 78 mm[Hg] 024 15:15:00 [facility] Mean Arterial Pressure, Calc 96 mm[Hg] 09/05/2023 15:15:[address] [place] [address] Peripheral Pulse Rate 84 bpm 09/05/2023 15:15:[address] [place] [address] Respiratory Rate 18 br/min 09/05/2023 15:15:[address] [place] [address] Temperature Oral 37.1 Shaila 09/05/2023 15:15:[address] [place] [address] BP Site Right arm 09/05/2023 15:15:[address] [place] [address] Blood Pressure Manual Automatic 09/05/2023 15:15:[address] [place] [address] Systolic Blood Pressure 136 mm[Hg] 04/12/20 20:02:[address] [place] [address] Diastolic Blood Pressure 82 mm[Hg] 023 20:02:[address] [place] [address] Mean Arterial Pressure, Calc 100 mm[Hg] 04/12/2023 20:02:[address] [place] [address] Peripheral Pulse Rate 91 bpm 04/12/2023 20:02:[address] [place] [address] Respiratory Rate 18 br/min 04/12/2023 20:02:[address] [place] [address] Temperature Oral 36.6 Shaila 04/12/2023 20:02:[address] [place] [address] Systolic Blood Pressure 122 mm[Hg] 05/24/20 23 19:55:[address] [place] [address] Diastolic Blood Pressure 83 mm[Hg] 023 19:55:[address] [place] [address] Mean Arterial Pressure, Calc 96 mm[Hg] 05/24/2023 19:55:[address] [place] [address] Peripheral Pulse Rate 82 bpm 05/24/2023 19:55:[address] [place] [address] Respiratory Rate 16 br/min 05/24/2023 19:55:[address] [place] [address] Temperature Oral 36.9 Shaila 05/24/2023 19:55:[address] [place] [address] BP Site Right arm 05/24/2023 19:55:[address] [place] [address] Blood Pressure Manual Automatic 05/24/2023 19:55:[address] [place] [address] Systolic Blood Pressure 152 mm[Hg] 09/18/19 23 19:26:[address] [place] [address] Medical Clinic Diastolic Blood Pressure 87 mm[Hg] 023 19:26:[address] [place] [address] Mean Arterial Pressure, Calc 109 mm[Hg] 09/18/2022 19:26:[address] [place] [address] Peripheral Pulse Rate 116 bpm 09/18/2022 19:26:[address] [place] [address] Clinic Respiratory Rate 16 br/min 09/18/2022 19:26:[address] [place] [address] Temperature Oral 36.6 Shaila 09/18/2022 19:26:[address] [place] [address] Systolic Blood Pressure 134 mm[Hg] 11/25/19 24 16:00:[address] [place] [address] Diastolic Blood Pressure 83 mm[Hg] 024 16:00:[address] [place] [address] Mean Arterial Pressure, Calc 100 mm[Hg] 11/25/2023 16:00:[address] [place] [address] Peripheral Pulse Rate 114 bpm 11/25/2023 16:00:[address] [place] [address] Clinic Respiratory Rate 16 br/min 11/25/2023 16:00:[address] [place] [address] Temperature Oral 37 Shaila 11/25/2023 16:00:[address] [place] [address] BP Site Left arm 11/25/2023 16:00:[address] [place] [address] Blood Pressure Manual Automatic 11/25/2023 16:00:[address] [place] [address] Peripheral Pulse Rate 88 bpm 06/13/2021 15:02:[address] [place] [address] Clinic Respiratory Rate 16 br/min 06/13/2021 15:02:[address] [place] [address] Clinic Temperature Oral 36.7 Shaila 06/13/2021 15:02:[address] [place] [address] BP Site Left arm 06/13/2021 15:02:00 [facility] Blood Pressure Manual Automatic 06/13/2021 15:02:00 [facility] Systolic Blood Pressure 131 mm[Hg] 09/18/19 23 19:59:00 [facility] Diastolic Blood Pressure 82 mm[Hg] 023 19:59:00 [facility] Mean Arterial Pressure, Calc 98 mm[Hg] 09/18/2022 19:59:00 [facility] BP Site Right arm 09/18/2022 [...] ADM Date DC Date Status Disposition Source [address] [place] [address] Aj [facility]AH [facility])(Ped iatrics) OUTPATIENT [id number] school phy/ph# CAROL BLOOD 03/14 Released w/o Limitations [address] [place] [address] Aj [facility]AH [facility])(P ediatri cs) [address] [place] [address] Aj [facility]AH [facility])(Fam jordi Practice Non-GME FHI1) OUTPATIENT 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
--- OUTSIDE RECORDS SUMMARY | 2024-09-22 00:09 | XMS_ITS | Referral Summary ---
Author Organization [facility] Address [address] [place] [address] Care Team Providers Care Train Gateman Name Role Phone Petrona [facility] Primary Care Provider [phone] Source Comments [facility],non-owned Affiliates and Associated Physician Practices is amultiple site organization consisting of ambulatory clinics and hospital sitesin [place] and [place]. This disclosure is being madepursuant to the Care Everywhere program and may not contain all information available regarding this patient. Last updated 18.[facility] Allergies No known active allergies Medications Be [...] of Treatment Not on file Care Teams Train Gateman Relationship Specialty Start Date End Date [facility] [place] PCP - General 05/07/11
[2024-09-22] MEDS: LACTATED RINGERS 1,000 ML 999 ML IV CONT (00:22)
[2024-09-22] MEDS: KETOROLAC 15 MG/ML VIAL (*BKC) IV PUSH (00:23)
[2024-09-22] MEDS: dexAMETHasone SOD PHOS INJ 10 MG/ML 1 ML VIAL 6 MG IV PUSH (00:23)
[2024-09-22 00:25] LABS: Basophils Absolute Auto 0.1 K/mm3 (0.0-0.1); Basophils Percent Auto 0.6 % (0.2-1.2); Eosinophils Absolute Auto 0.1 K/mm3 (0-0.3); Eosinophils Percent Auto 1.2 % (0-4.4); Hematocrit 41.6 % (42.0-52.0); Immature Granulocyte Absolute 0.04 K/mm3 (0.00-0.031); Immature Granulocyte Percent A 0.4 % (0-0.5); Lymphocytes Absolute Auto 1.85 K/mm3 (0.9-3.2); Lymphocytes Percent Auto 16.7 % (18.3-44.2); Mean Corpuscular HGB Conc 33.7 g/dl (32-36); Mean Corpuscular Hemoglobin 29.8 pg (26-34); Mean Corpuscular Volume 88.5 fl (80-100); Mean Platelet Volume 10.5 fl (7.4-10.4); Monocytes Absolute Auto 1.6 K/mm3 (0.1-0.6); Monocytes Percent Auto 14.1 % (2.6-8.5); Neutrophils Absolute Auto 7.4 K/mm3 (1.3-6.7); Platelet Count Result 384 k/mm3 (150-375); Red Cell Distribution Width 12.7 % (11.5-14.5); White Blood Count 11.1 K/mm3 (4.5-10.0)
[2024-09-22 00:26] VITALS: BP 152/88; PULSE 111; RESP 15; O2SAT 100
[2024-09-22 00:36] LABS: Alanine Aminotransferase 57 U/L (6-50); Albumin Level 4.6 g/dL (3.5-5.1); Alkaline Phosphatase 101 U/L (38-126); Anion Gap 12 mmol/L (4-12); Aspartate Amino Transferase 34 U/L (17-59); Bilirubin,Total 0.5 mg/dL (0.2-1.3); Blood Urea Nitrogen 12 mg/dL (9-20); Calcium 9.5 mg/dL (8.4-10.2); Carbon Dioxide 24 mmol/L (22-30); Chloride 102 mmol/L (98-107); Estimated CRCL calculation 168 ml/min; Estimated Glomerular Filt Rate > 60; Glucose 104 mg/dL (65-110); Potassium 3.7 mmol/L (3.4-5.0); Sodium 138 mmol/L (137-145)
[2024-09-22 01:23] LABS: Negative Monotest Control Negative (Negative); Positive Monotest Control Positive (Positive)
[2024-09-22 01:29] LABS: Monoscreen Negative (Negative)
[2024-09-22 02:20] VITALS: BP 138/72; PULSE 96; RESP 15; O2SAT 100
== END 2024-09-22 02:22 | disposition home or self-care (01) ==
PROVIDERS: Emergency Medicine; Emergency Provider Physician Assistant
DX: J02.9 Acute pharyngitis, unspecified (principal); Z20.822 Contact with and (suspected) exposure to COVID-19; R00.0 Tachycardia, unspecified
CPT/HCPCS: 36415; 80053; 85025; 86308; 87637; 87651; 93005; 96361; 96374; 96375; 99284; J1100; J1885; J7120